=== PATIENT | male | born 1960 | race Caucasian/White ===

== ENCOUNTER → 2017-03-29 | Outpatient (CLI) | payer BC ==
[~2017-03-29] MED LIST: FENO145T26 PO; FLUO40CA8 PO; GADAVIST IV PRN; HYDR25TA4 PO; OMEP20CA59 PO; SIMV40TA2 PO
--- NOTE | 2017-03-29 09:52 | DIAGNOSTIC IMAGING REPORT ---
Brain MRI WITH AND WITHOUT CONTRAST HISTORY: Visual abnormality. I63.9 Stroke [id number] TECHNIQUE: Multiplanar multisequence MRI of the brain was performed both before and after the intravenous administration of contrast. COMPARISON STUDY: None. FINDINGS: There are no areas of restricted diffusion to suggest acute infarction. The midline structures are intact. The paranasal sinuses are clear. The mastoid air cells are clear. The ventricles and sulci are within normal limits for age. There is no mass, hematoma, midline shift. The major vascular flow-voids at the skull base are well maintained. Postcontrast sequences show no areas of abnormal enhancement. IMPRESSION: No acute intracranial abnormality. Electronically signed by: Anoop Sanchez M.D. 03/29/2017 9:51 AM Dictated Date/Time: 03/29/2017 9:43 AM
--- NOTE | 2017-03-29 10:19 | DIAGNOSTIC IMAGING REPORT ---
BILATERAL CAROTID DOPPLER STUDY HISTORY: Visual disturbances. COMPARISON: None. TECHNIQUE: Real-time, grayscale, and color Doppler sonography of the carotid arteries was performed. Imaging reviewed in the transverse and longitudinal planes. All measurements were calculated based on NASCET criteria. FINDINGS: Antegrade flow is seen in the bilateral vertebral arteries. The brachial pressures are hemodynamically similar but elevated measuring up to 177/105 on the right. The peak systolic velocity within the right ICA is 71 cm/s. The right systolic ratio is 0.6. The peak systolic velocity within the left ICA is 71 cm/s. The left systolic ratio is 0.8. IMPRESSION: 1. No hemodynamically significant stenosis seen within the carotid arteries. 2. Elevated blood pressures measuring up to 177/105. 3. These findings were called/faxed to the referring physician's office following dictation. Electronically signed by: Anoop Sanchez M.D. 03/29/2017 10:18 AM Dictated Date/Time: 03/29/2017 10:16 AM
== END | disposition home or self-care (01) ==
LOC: C.MRI 08:43
PROVIDERS: ATTEND Psychiatry & Neurology Neurology
DX: I63.9 Cerebral infarction, unspecified (principal)

== ENCOUNTER → 2017-08-01 | Outpatient (CLI) | payer OTHER ==
[~2017-08-01] MED LIST changes: -GADAVIST IV PRN
--- NOTE | 2017-08-01 10:43 | DIAGNOSTIC IMAGING REPORT ---
RIGHT THIRD FINGER 3 VIEWS CLINICAL HISTORY: Right third finger pain status post trauma COMPARISON: None. DISCUSSION: There is a nondisplaced fracture involving the tuft of the distal phalanx the third finger. No additional fractures are visualized. There is no dislocation. There is associated soft tissue swelling. IMPRESSION: Nondisplaced fracture involving the tuft of the distal phalanx. Electronically signed by: Regulo Mishra M.D. 08/01/2017 10:41 AM Dictated Date/Time: 08/01/2017 10:38 AM
== END | disposition home or self-care (01) ==
LOC: C.RADPV 10:21
PROVIDERS: ATTEND Family Medicine
DX: S62.662A Nondisplaced fracture of distal phalanx of right middle finger, initial encounter for closed fracture (principal); X58.XXXA Exposure to other specified factors, initial encounter

== ENCOUNTER → 2017-08-08 | Outpatient (CLI) | payer OTHER ==
[2017-08-08 13:25] LABS: BLOOD UREA NITROGEN 13 mg/dl (7-18); CREATININE 1.26 mg/dl (0.60-1.40); GLUCOSE 101 mg/dl (70-99)
[2017-08-08 13:26] LABS: CALCIUM 9.4 mg/dl (8.5-10.1); CARBON DIOXIDE 27 mmol/L (21-32); CHOLESTEROL 220 mg/dl (0-200); POTASSIUM 3.3 mmol/L (3.5-5.1); SODIUM 138 mmol/L (136-145)
[2017-08-08 13:30] LABS: LDL CHOLESTEROL CALCULATED 160 mg/dl
== END | disposition home or self-care (01) ==
LOC: C.LABPVFM 08:57
PROVIDERS: ATTEND Nurse Practitioner
DX: E78.5 Hyperlipidemia, unspecified (principal); I10 Essential (primary) hypertension

== ENCOUNTER 2022-08-02 10:32 | Inpatient (IN) ==
--- NOTE | 2022-07-13 12:07 | PAT Medication Instructions ---
Medication Instructions Date of Service July 13, 2022 Home Medications Medication Instructions Recorded zolpidem 5 mg tablet (Ambien) 5 mg PO ONCE PRN insomnia #30 tabs 03/04/22 losartan 25 mg tablet 25 mg PO QAM #90 tabs 03/22/22 atorvastatin 40 mg tablet 40 mg PO QAM #90 tabs 04/05/22 fenofibrate nanocrystallized 145 145 mg PO QAM #90 tabs 04/05/22 mg tablet verapamil 100 mg capsule 24hr 100 mg PO QAM #90 caps 04/12/[address],ext.release escitalopram oxalate 20 mg tablet 20 mg PO QAM #90 tabs 05/10/22 (Lexapro) multivitamin 1 tab PO QAM zolpidem 5 mg tablet (Ambien) 5 mg PO ONCE PRN insomnia losartan 25 mg tablet 25 mg PO QAM atorvastatin 40 mg tablet 40 mg PO QAM fenofibrate nanocrystallized 145 mg tablet 145 mg PO QAM verapamil 100 mg capsule 24hr pellet CT,ext.release 100 mg PO QAM escitalopram oxalate 20 mg tablet (Lexapro) 20 mg PO QAM ferrous sulfate 325 mg (65 mg iron) tablet (iron) 325 mg PO QAM gabapentin 300 mg tablet 300 - 900 mg PO UD omeprazole 40 mg capsule,delayed release 40 mg PO BID PRN Indigestion STOP taking 48 hours before surgery fenofibrate nanocrystallized 145 mg tablet 145 mg PO QAM DO NOT take the morning of surgery multivitamin 1 tab PO QAM losartan 25 mg tablet 25 mg PO QAM ferrous sulfate 325 mg (65 mg iron) tablet (iron) 325 mg PO QAM Take morning of surgery With a small sip of water, OTHERWISE NOTHING TO EAT OR DRINK AFTER MIDNIGHT: atorvastatin 40 mg tablet 40 mg PO QAM verapamil 100 mg capsule 24hr pellet CT,ext.release 100 mg PO QAM escitalopram oxalate 20 mg tablet (Lexapro) 20 mg PO QAM omeprazole 40 mg capsule,delayed release 40 mg PO BID PRN Indigestion (if needed) gabapentin 300 mg tablet 300 - 900 mg PO UD Take evening before surgery zolpidem 5 mg tablet (Ambien) 5 mg PO ONCE PRN insomnia (if needed) omeprazole 40 mg capsule,delayed release 40 mg PO BID PRN Indigestion (if needed) gabapentin 300 mg tablet 300 - 900 mg PO UD Other Notes If you have any questions please call us at [phone] or [phone] or [phone] or [phone]
--- NOTE | 2022-07-19 10:33 | Anesthesiology Consultation ---
Date of Service July 19, 2022 Assessment & Plan (1) Encounter for pre-operative examination: Chart Review Chart Review: Acceptable Risk for Surgery and Patient seen in Pre Admission Testing Teaching & Discussion Pre-Anesthesia Teaching/Discussion Notes: Instructed NPO after midnight before surgery, except medications with 15 cc of water. Medication instructions provided according to the PAT guidelines. History Surgery Operation Date: 08/02/22 07:45 Proposed Procedures p L2-L4 Decompression, L2-L5 Fusion, L4-L5 Hardware Removal, Spinal Cord Monitoring - Kane James DO Height/Weight Height: 5 ft 7 in Weight: 74.843 kg Allergies Allergy/AdvReac Type Severity Reaction Status Date / Time lisinopril AdvReac Mild cough Verified 07/13/22 10:19 Medications Home Medications Medication Instructions Recorded Confirmed Last Taken multivitamin 1 tab PO QAM 09/07/21 07/13/22 09/09/21 zolpidem 5 mg tablet (Ambien) 5 mg PO ONCE PRN insomnia #30 tabs 03/04/22 07/13/22 Unknown losartan 25 mg tablet 25 mg PO QAM #90 tabs 03/22/22 07/13/22 Unknown atorvastatin 40 mg tablet 40 mg PO QAM #90 tabs 04/05/22 07/13/22 Unknown fenofibrate nanocrystallized 145 145 mg PO QAM #90 tabs 04/05/22 07/13/22 Unknown mg tablet escitalopram oxalate 20 mg tablet 20 mg PO QAM #90 tabs 05/10/22 07/13/22 Unknown (Lexapro) ferrous sulfate 325 mg (65 mg 325 mg PO QAM 07/13/22 07/13/22 Unknown iron) tablet (iron) gabapentin 300 mg tablet 300 - 900 mg PO UD 07/13/22 07/13/22 Unknown omeprazole 40 mg capsule,delayed 40 mg PO BID PRN Indigestion 07/13/22 07/13/22 Unknown release verapamil 100 mg capsule 24hr 100 mg PO QAM #90 caps 07/14/[address],ext[address]release Past Medical History Medical History (Updated 07/19/22 @ 10:46 by Mikaela Xavier PA-C) Anemia Depression GERD (gastroesophageal reflux disease) controlled, stable per pt History of colon polyps History of esophageal dilatation last done > 1 yr ago HLD (hyperlipidemia) HTN (hypertension) controlled, stable per pt Migraine ocular, pt states had negative MRI brain and carotid studies > 5 yrs ago Prediabetes Recovering alcoholic Slow to wake up after anesthesia denies needing re-intubation Tubular adenoma of colon Patient denies h/o stroke, seizures, heart attack, heart failure, blood clots or blood transfusions. Exercise / Class Metabolic Activity II 4-5 Yardwork/Stairs/Walk up hill (denies chest discomfort or shortness of breath with 1 FOS) Past Family History Family History Mother Colorectal cancer Other No family history of adverse response to anesthesia Denies family history of Ovarian cancer Prostate cancer Myocardial infarction Breast cancer Past Surgical History Surgical History History of colonoscopy last 09/2020 @ [facility] History of esophagogastroduodenoscopy (EGD) History of hand surgery Rt History of lumbar fusion History of shoulder surgery Lt History of tonsillectomy History of wisdom tooth extraction S/P correction of deviated nasal septum Past Anesthesia History No Family Hx of Anesthesia Complications and Other (slow to wake up, denies needing re-intubation) History of PONV No Hx of PONV and No Hx of Motion Sickness Social History Smoking Status: Former smoker tobacco type: cigarettes Do You Dip or Chew Tobacco: Yes (1 can/10 days; advised) Smoking End Date: 8-10 years ago Hx Alcohol Use: No Hx Substance Use: No substance use type: does not use Review of Systems Patient denies chest pain, shortness of breath, dyspnea on exertion, snoring, witnessed apneas, fever, chills, cough, wheezing, or palpitations. Physical Exam Vital Signs Vitals BP 126/86 P 70 TEMP 98.6 SP02 96% on RA RESP 17 Physical Full cervical extension range of motion without pain TMD 3.5 finger breadths Mallampati Score 3 Dentition: multiple caps/crowns; denies chipped or loose teeth, implants or bridges Lungs: normal respiratory effort. Clear throughout to auscultation, no adventitious breath sounds Cardiac: regular rate and rhythm, no murmurs noted Carotid arteries: negative bruit bilat Lab Results Anesthesia Preop Results Results Anesthesia Widget: WBC 5.74 K/ul (4.8-10.8) 07/19/22 Hgb 14.4 g/dl (14.0-18.0) 07/19/22 Hct 43.6 % (42.0-52.0) 07/19/22 Plt 331 K/uL (130-400) 07/19/22 Na 141 mmol/L (136-145) 07/19/22 K 3.8 mmol/L (3.5-5.1) 07/19/22 Cl 106 mmol/L (98-107) 07/19/22 CO2 31 mmol/L (21-32) 07/19/22 BUN 13 mg/dl (6-23) 07/19/22 Creat 1.03 mg/dl (0.6-1.4) 07/19/22 Glucose Level 79 mg/dl (70-99(Fasting)) 07/19/22 PT 11.4 Seconds (9.0-12.0) 07/19/22 PTT 26.6 Seconds (21.0-31.0) 07/19/22 INR 1.1 (0.9-1.1) 07/19/22 Urine Color Dark Yellow 07/19/22 Urine Appearance Cloudy (Clear) A 07/19/22 Urine pH 7.0 (4.5-7.5) 07/19/22 Urine Specific [place] 1.018 (1.000-1.030) 07/19/22 Urine Protein Negative (Negative) 07/19/22 Urine Glucose (UA) Negative (Negative) 07/19/22 Urine Ketones Negative (Negative) 07/19/22 Urine Blood Negative (Negative) 07/19/22 Urine Nitrite Negative (Negative) 07/19/22 Urine Bilirubin Negative (Negative) 07/19/22 Urine Urobilinogen Negative (Negative) 07/19/22 Urine Leukocyte Esterase Negative (Negative) 07/19/22 Urine WBC (Auto) 1-5 /hpf (0-5) 07/19/22 Urine RBC (Auto) 5-10 /hpf (0-4) H 07/19/22 Urine Hyaline Casts (Auto) 1-5 /lpf (0-5) 07/19/22 Urine Epithelial Cells (Auto) 5-10 /lpf (0-5) H 07/19/22 Urine Bacteria (Auto) Negative (Negative) 07/19/22 Blood Type O Negative 07/19/22 Antibody Screen NEGATIVE 07/19/22 Testing Electrocardiogram Date: 07/19/22 NSR, rate 68 bpm Chest X-Ray Date: 07/19/22 Cardiomediastinal and hilar silhouettes are within normal limits. No pneumothorax, pleural effusion, airspace consolidation or pulmonary edema. Bones appear grossly intact. IMPRESSION: No acute process. COVID-19 Risk Screen Screening Information COVID-19 Screen Date: 07/19/22 Exposure 21 Days Family/Household +COVID Last 21 Days: No Exposure 10 Days Any COVID Exposure Last 10 Days: No Symptoms Last 10 Days Experienced COVID Sx Last 10 Days: No + COVID 0-90 Days COVID + in Last 0-90 Days: No
[~2022-08-02 10:32] MED LIST changes: +ACETAMINOPHEN 500 MG TAB PO SCH; +CeleBREX 200 MG CAP PO SCH; -FENO145T26 PO; -FLUO40CA8 PO; +GABAPENTIN 600 MG DOSE PO SCH; -HYDR25TA4 PO; +LR 15ML/HR IV SCH; -OMEP20CA59 PO; -SIMV40TA2 PO; +ceFAZolin 2000MG 2,000 MG/15 ML SYR IV SCH
[2022-08-02] MEDS ORDERED: MIDAZOLAM HCL 1 MG/ML 2ML VIAL ONE (10:38)
[2022-08-02] MEDS ORDERED: HYDROmorphone INJ 2 MG/ML SYR/VIAL ONE (10:38)
[2022-08-02] MEDS ORDERED: ONDANSETRON INJ 2 MG/ML 2 ML VIAL ONE (10:39)
[2022-08-02] MEDS ORDERED: PROPOFOL IV EMULSION 10 MG/ML 20 ML VIAL IV ONE ×2 (10:39→12:14)
[2022-08-02] MEDS ORDERED: DEXAMETHASONE SOD INJ 4 MG/ML VIAL ONE (10:39)
[2022-08-02] MEDS ORDERED: ROCURONIUM BROMIDE 10 MG/ML 5 ML VIAL IV ONE (10:39)
[2022-08-02] MEDS ORDERED: LIDOCAINE 2% MPF LOCAL 5 ML VIAL ONE (10:39)
[2022-08-02] MEDS ORDERED: PROMETHAZINE HCL 6.25 MG in SODIUM CHLORIDE 0.9% 50 ML IV PRN (10:53)
[2022-08-02] MEDS ORDERED: ONDANSETRON INJ 2 MG/ML 2 ML VIAL IV PRN ×2 (10:53→15:14)
[2022-08-02] MEDS ORDERED: ATROPINE SULFATE 0.1 MG/ML 10ML SYR IV PRN (10:53)
[2022-08-02] MEDS ORDERED: ePHEDrine sulfate 50 MG/ML AMP IV PRN (10:53)
[2022-08-02] MEDS ORDERED: fentaNYL citrate PF 100 MCG/2 ML VIAL IV PRN (10:53)
--- NOTE | 2022-08-02 11:07 | History & Physical Bridge Note ---
Date of Service August 02, 2022 History & Physical Bridge Note I have examined the patient, reviewed the History & Physical and in the interval since the performance of the History & Physical I have noted the following changes of clinical significance: no changes noted
--- NOTE | 2022-08-02 11:09 | History & Physical Report ---
Date of Service August 02, 2022 Assessment & Plan (1) Neurogenic claudication due to lumbar spinal stenosis: Plan: L2-L4 decompression, L2-L5 fusion, L4-L5 hardware removal History of Present Illness Chief Complaint: Back and leg pain Primary Care Provider: GEM Cole This is a 62-year-old male presents with above-mentioned diagnosis after failed course of nonoperative care is here for surgical invention. Allergies Allergy/AdvReac Type Severity Reaction Status Date / Time lisinopril AdvReac Mild cough Verified 08/02/22 10:53 Home Medications Medication Instructions Recorded Confirmed Type multivitamin 1 tab PO QAM 09/07/21 08/02/22 History zolpidem 5 mg tablet (Ambien) 5 mg PO ONCE PRN insomnia #30 tabs 03/04/22 08/02/22 Rx losartan 25 mg tablet 25 mg PO QAM #90 tabs 03/22/22 08/02/22 Rx atorvastatin 40 mg tablet 40 mg PO QAM #90 tabs 04/05/22 08/02/22 Rx fenofibrate nanocrystallized 145 145 mg PO QAM #90 tabs 04/05/22 08/02/22 Rx mg tablet escitalopram oxalate 20 mg tablet 20 mg PO QAM #90 tabs 05/10/22 08/02/22 Rx (Lexapro) ferrous sulfate 325 mg (65 mg 325 mg PO QAM 07/13/22 08/02/22 History iron) tablet (iron) gabapentin 300 mg tablet 300 - 900 mg PO UD 07/13/22 08/02/22 History omeprazole 40 mg capsule,delayed 40 mg PO BID PRN Indigestion 07/13/22 08/02/22 History release verapamil 100 mg capsule 24hr 100 mg PO QAM #30 caps 07/26/22 07/26/[address],ext.release Past Med/Surg History Medical History Anemia Depression GERD (gastroesophageal reflux disease) History of colon polyps History of esophageal dilatation HLD (hyperlipidemia) HTN (hypertension) Migraine Prediabetes Recovering alcoholic Slow to wake up after anesthesia Tubular adenoma of colon Surgical History History of colonoscopy History of esophagogastroduodenoscopy (EGD) History of hand surgery History of lumbar fusion History of shoulder surgery History of tonsillectomy History of wisdom tooth extraction S/P correction of deviated nasal septum Family History Mother Colorectal cancer Other No family history of adverse response to anesthesia Denies family history of Ovarian cancer Prostate cancer Myocardial infarction Breast cancer Social History Smoking Status: Former smoker Tobacco Type: Smokeless Tobacco (Dip or Chew) Smoking End Date: 8-10 years ago; Second Hand Exposure: Yes (hx); Do You Dip or Chew Tobacco: Yes (1 can/10 days; advised); Tobacco Cessation Education Requested by Patient: No Hx Alcohol Use: No Hx Substance Use: No Preferred Language: Macedonian Communication Ability: Effective Manager Developmental Required: No Beliefs That Will Affect Care: None marital status: Current Living Situation: Spouse current occupational status: employed How many Children do You have: 1 Other Information That Helps Us Care for You: No Feels Safe at Home: Yes Safety Concerns: Feels Safe At This Time Childhood Exposure to Second-Hand Smoke: No caffeine: Yes Dental Care, Regularly: Yes Physical Activity Frequency: Daily Seatbelt Use: always Sunscreen Use: Yes Assistive Devices: Glasses Physical Exam Physical Exam: Patient is alert and oriented Heart regular rhythm Lungs clear Results & Data Results & Data Vital Signs (Past 12 Hours) Vital Signs Temp Pulse Resp BP Pulse Ox O2 Del Method 08/02/22 10:56 37 C 66 16 138/87 97 Room Air
[2022-08-02] MEDS ORDERED: ceFAZolin 330 MG/ML 1 GM VIAL ONE (11:14)
[2022-08-02] MEDS ORDERED: BUPIVACAINE/EPINEPHRINE 0.25% 1:200,000 30 ML VIAL ONE (11:14)
[2022-08-02] MEDS ORDERED: FLOSEAL HEMOSTATIC MATRIX 10ML TOP ONE (12:32)
[2022-08-02] MEDS ORDERED: ePHEDrine sulfate 50 MG/ML SYR ONE (12:36)
[2022-08-02] MEDS ORDERED: SUGAMMADEX SODIUM 200 MG/2 ML VIAL IV ONE (12:43)
--- NOTE | 2022-08-02 13:44 | Operative Report ---
Post Operative Report Pre & Post Diagnosis Operation Date: 08/02/22 12:05 Pre-Op Diagnosis: Spinal Stenosis, Lumbar Region without Neurogenic Post-Op Diagnosis: Spinal Stenosis, Lumbar Region without Neurogenic I identified the patient and participated in the time-out.: Yes Procedure Operation Date: 08/02/22 12:05 Actual Procedures #1 removal of posterior instrumentation L4-L5. #2 exploration of fusion L4-5. #3 lumbar decompression with bilateral medial facetectomies and foraminotomies L2-L3 L3-L4. #4 posterior spinal fusion L2-L3 L3-L4. #5 placement posterior instrumentation L2-L5. #6 interbody fusion L2-L3 L3-L4. #7 placement of Spira 12 x 26 mm cage at L2-L3 and L3-L4. #8 placement locally harvested morselized autograft and posterior gutters. #9 placement I factor bone of the talus in the interbody space and posterior gutters. Surgeon Kane James, Artifacts Conservator Gabriela Cantrell Estimated Blood Loss 350 Findings Consistent with Post-Op Diagnosis Specimens None Indications This is a 61-year-old male who presents above-mentioned diagnosis after failed course of nonoperative care is here for surgical invention. Description of Procedure Patient was met with identified informed consent obtained. Patient was then taken to the operative suite underwent a patient placed in a prone position on the Grupo table top Andres frame. All bony prominences well-padded eyes inspected to ensure no external pressure placed upon the. This point the lumbar spine was prepped and draped in normal sterile fashion. Sharp dissection with assistance of Bovie cautery performed down to and exposing the lamina and transverse processes of L2-L3 and instrumentation at L4-L5 bilaterally. Then proceeded move the hardware bilaterally explore the fusion mass noting it to be mature intact. Then performed complete laminectomy of L3 and L2 including bilateral medial facetectomies and foraminotomies addressing severe spinal stenosis. Pedicle screws then placed in L2 L3-L4-L5 bilaterally with assistance of fluoroscopy and the properly sized silva placed. By way of a trans foraminal approach on the right complete discectomy L3-L4 was performed endplates curetted to subcortical bleeding bone and a 12 x 26 mm Spira cage with I factor tapped in position. I then proceeded L2-L3 and again by way of transforaminal approach on the right complete discectomy performed endplates curetted to subcortically and bone and again a 12 x 26 mm Spira cage with I factor tapped in position. The rods were then locked in final position bilaterally. The transverse processes of L2-L3-L4 burred to subcortical bleeding bone. I factor combined with the test and locally harvested morselized autograft was placed in the posterior gutters. 15 round ESTEPHANIE drain inserted. The incision was then closed with 1 Vicryl the fascia 2-0 Vicryl subcutaneously and 4 Monocryl for final skin closure. Steri-Strip sterile dressings placed. Please note I did place DuraGen over the thinned area of the dura that was very tight throughout the dissection. No durotomy was noted as prophylactic. Also Gabriela Cantrell was present out the entire procedure and all the patient positioning complex portions of the surgery and final skin closure. Lastly spinal cord monitoring was utilized throughout the procedure no changes noted. I attest to the content of the Intraoperative Record and any orders documented therein. Any exceptions are noted below.
--- NOTE | 2022-08-02 14:39 | Fluoroscopy Report ---
INTRAOPERATIVE RADIOGRAPHS CLINICAL HISTORY: Lumbar spinal fusion surgery. Fluoro time: 17 seconds Ka,r: 18.25 mGy FINDINGS: 4 spot fluoroscopic views of the lumbar spine are presented. There has been discectomy at L 2-L3, L3-L4, and L4-L5 with laminectomy and posterior fusion from L2-L5. Interpedicular screws are pr esent at all levels. The orthopedic hardware appears intact. IMPRESSION: Intraoperative images from lumbar spinal fusion surgery as above. Electronically signed by: Marito Christian M.D. 08/02/2022 2:37 PM
[2022-08-02] MEDS ORDERED: PROMETHAZINE HCL 12.5 MG in SODIUM CHLORIDE 0.9% 50 ML IV PRN (15:14)
[2022-08-02] MEDS ORDERED: LORazepam 2 MG/1 ML VIAL IV PRN (15:14)
[2022-08-02] MEDS ORDERED: bisacodyL 10 MG SUPP PR PRN (15:14)
[2022-08-02] MEDS ORDERED: ONDANSETRON 4 MG OD TAB PO PRN (15:14)
[2022-08-02] MEDS ORDERED: FAMOTIDINE 20 MG TAB PO PRN (15:14)
[2022-08-02] MEDS ORDERED: HYDROmorphone INJ 1 MG/ML SYRINGE IV PRN (15:14)
[2022-08-02] MEDS ORDERED: MAGNESIUM HYDROXIDE SUSP 30 ML UDC PO PRN (15:14)
[2022-08-02] MEDS ORDERED: PANTOprazole 40 MG TAB PO PRN (15:14)
[2022-08-02] MEDS ORDERED: NON-FORMULARY MEDICATION (Gabapentin 300 mg Tablet) PO SCH (15:14)
[2022-08-02] MEDS ORDERED: ACETAMINOPHEN 500 MG TAB PO PRN (15:14)
[2022-08-02] MEDS ORDERED: diphenhydrAMINE Capsule 25 MG CAP PO PRN (15:14)
[2022-08-02] MEDS ORDERED: hydrOXYzine HCl 25 MG TAB PO PRN (15:14)
[2022-08-02] MEDS ORDERED: ACETAMINOPHEN 1,000 MG/100 ML VIAL IV PRN (15:14)
[2022-08-02] MEDS ORDERED: traMADol HCL 50 MG TABLET PO PRN (15:14)
[2022-08-02] MEDS ORDERED: METOCLOPRAMIDE HCL INJ 5 MG/ML 2 ML VIAL IV PRN (15:14)
[2022-08-02] MEDS ORDERED: SOD PHOSPHATE/SOD BIPHOSPHATE ENEMA 132 ML BTL PR PRN (15:14)
[2022-08-02] MEDS ORDERED: NALOXONE HCL 0.4 MG/1 ML VIAL/CARP IV PRN (15:14)
[2022-08-02] MEDS ORDERED: HYDROmorphone INJ 0.5 MG/0.5 ML SYR IV PRN (15:14)
[2022-08-02] MEDS ORDERED: DO NOT ADMINISTER FLU VACCINE PRN (15:14)
[2022-08-02] MEDS ORDERED: LORazepam 0.5 MG TAB PO PRN (15:14)
[2022-08-02] MEDS ORDERED: ALUMINUM/MAGNESIUM SUSP 30 ML UDC PO PRN (15:14)
[2022-08-02] MEDS ORDERED: DO NOT ADMINISTER PNEUMOCOCCAL VACCINE PRN (15:14)
[2022-08-02] MEDS ORDERED: oxyCODONE HCL IR 5 MG TAB (IMMEDIATE RELEASE) PO PRN (15:14)
--- NOTE | 2022-08-02 16:33 | Anesthesiology Progress Note ---
Date of Service August 02, 2022 Anesthesia Post Procedure Vital Signs Vital Signs: Temp Pulse Pulse Resp BP Pulse Ox O2 Del Method 08/02/22 16:07 36.4 C L 80 18 100/64 95 Room Air 08/02/22 15:40 36.8 C 76 16 104/60 96 Room Air 08/02/22 15:39 Nasal Cannula 08/02/22 15:12 36.3 C L 85 16 100/59 L 98 Nasal Cannula 08/02/22 14:55 36.6 C 87 12 107/62 93 Nasal Cannula 08/02/22 14:45 36.6 C 82 12 100/60 92 Nasal Cannula 08/02/22 14:35 36.6 C 90 12 102/63 93 Room Air 08/02/22 14:25 88 20 101/65 96 Oxymask 08/02/22 14:15 85 15 107/62 96 Oxymask 08/02/22 14:05 89 16 98/60 L 97 Oxymask 08/02/22 13:56 36.5 C 84 18 118/66 96 Oxymask 08/02/22 10:56 37 C 66 16 138/87 97 Room Air O2 Flow Rate 08/02/22 16:07 08/02/22 15:40 08/02/22 15:39 3 08/02/22 15:12 3 08/02/22 14:55 3 08/02/22 14:45 3 08/02/22 14:35 08/02/22 14:25 1 08/02/22 14:15 3 08/02/22 14:05 5 08/02/22 13:56 7 08/02/22 10:56 Pain Intensity Bilateral Lower Back: Pain Intensity: 2 Transfer of Care Handoff Completed per policy Notes Mental Status: alert / awake / arousable Patient Amnestic to Procedure: Yes Nausea / Vomiting: adequately controlled Pain: adequately controlled Airway Patency, RR, SpO2: stable & adequate BP & HR: stable & adequate Hydration State: stable & adequate Anesthetic Complications: no major complications apparent
[2022-08-02] MEDS: LACTATED RINGER'S 1,000 ML IV SCH (16:50)
[2022-08-02] MEDS: GABAPENTIN 300 MG CAP PO SCH (21:14)
[2022-08-02] MEDS: DOCUSATE SODIUM/SENNA 50/8.6MG TAB PO SCH (21:14)
[2022-08-02] MEDS: ceFAZolin 2000MG 2,000 MG/15 ML SYR IV SCH (21:14)
[2022-08-03] MEDS: LACTATED RINGER'S 1,000 ML IV SCH (02:49)
[2022-08-03] MEDS: ceFAZolin 2000MG 2,000 MG/15 ML SYR IV SCH (04:20)
[2022-08-03] MEDS: POLYETHYLENE (MIRALAX) 17 GM PACK PO SCH ×3 (06:02→17:44)
[2022-08-03 06:24] LABS: Basophils # (auto) 0.01 K/uL (0-0.2); Basophils % (auto) 0.1 %; Hematocrit (blood only) 32.5 % (42.0-52.0); Hemoglobin 10.8 g/dl (14.0-18.0); Immature Granulocytes # (auto) 0.08 K/uL (0.01-0.20); Immature Granulocytes % (auto) 0.6 %; Lymphocytes # (auto) 0.68 K/uL (1.2-3.4); Lymphocytes % (auto) 4.7 %; Mean Corpuscular Hemoglobin 28.8 pg (25.0-34.0); Mean Corpuscular Hgb Conc 33.2 g/dL (32.0-36.0); Mean Corpuscular Volume 86.7 fL (80.0-100.0); Mean Platelet Volume 10.4 fL (9.4-12.4); Monocytes # (auto) 1.02 K/uL (0.11-0.59); Monocytes % (auto) 7.1 %; Neutrophils # (auto) 12.58 K/uL (1.40-6.50); Neutrophils % (auto) 87.5 %; Platelet Count 320 K/uL (130-400); RDW Standard Deviation 41.1 fL (36.4-46.3); Red Blood Count 3.75 M/uL (4.70-6.10); White Blood Count 14.37 K/ul (4.8-10.8)
[2022-08-03 06:48] LABS: BUN Creatinine Ratio 10.8 (10-20); Calcium 8.7 mg/dl (8.6-10.3); Est GFR (African American) 100.9 ml/min; Est GFR (Non-African American) 87.1 ml/min; Potassium 3.8 mmol/L (3.5-5.1)
[2022-08-03] MEDS: dexAMETHasone 6 MG in SYRINGE 0 ML IV SCH (08:22)
[2022-08-03] MEDS: GABAPENTIN 300 MG CAP PO SCH ×2 (08:22→22:34)
[2022-08-03] MEDS: ATORVASTATIN 40 MG TAB PO SCH (08:23)
[2022-08-03] MEDS: ESCITALOPRAM OXALATE 20 MG TAB PO SCH (08:23)
[2022-08-03] MEDS: MULTIVITAMIN TAB PO SCH (08:23)
[2022-08-03] MEDS: FERROUS SULFATE 325 MG TAB PO SCH (08:23)
[2022-08-03] MEDS: LOSARTAN POTASSIUM 25 MG TAB PO SCH (08:23)
--- NOTE | 2022-08-03 10:13 | Hospitalist Consultation ---
Date of Consultation August 03, 2022 Assessment & Plan (1) Neurogenic claudication due to lumbar spinal stenosis: Acute neurological claudication necessitating surgery 08/02/2022 L4-L5 to decompression with L2 L5 fusion, previous hardware removal Dr. James Postoperative pain control with Tylenol, perioperative dexamethasone, gabapentin, parenteral hydromorphone and oral oxycodone Acute blood loss anemia postoperatively not in need of transfusion, (2) Hypertension: Chronic stable hypertension continue verapamil and losartan, pressures are slightly soft postoperatively continue to follow (3) Depression: Chronic stable depression continue Lexapro (4) Prediabetes: Chronic stable patient with history of prediabetes previous A1c's have been 6.2 and 5.4. With steroid use we will continue to follow serum blood glucoses and if need be institute therapy History of Present Illness Attending Physician: Kane James, DO History of Present Illness 62-year-old male underwent an L2-L4 decompression with an L2-L5 fusion previous hardware removal by Dr. James on 08/02/2022 Medical consultation for perioperative management with a history of hypertension and dyslipidemia as well as depression. Documentation in the chart of prediabetes, previous hemoglobin A1c's have been normal Allergies Allergy/AdvReac Type Severity Reaction Status Date / Time lisinopril AdvReac Mild cough Verified 08/02/22 10:53 Home Medications Medication Instructions Recorded Confirmed Type multivitamin 1 tab PO QAM 09/07/21 08/02/22 History zolpidem 5 mg tablet (Ambien) 5 mg PO ONCE PRN insomnia #30 tabs 03/04/22 08/02/22 Rx losartan 25 mg tablet 25 mg PO QAM #90 tabs 03/22/22 08/02/22 Rx atorvastatin 40 mg tablet 40 mg PO QAM #90 tabs 04/05/22 08/02/22 Rx fenofibrate nanocrystallized 145 145 mg PO QAM #90 tabs 04/05/22 08/02/22 Rx mg tablet escitalopram oxalate 20 mg tablet 20 mg PO QAM #90 tabs 05/10/22 08/02/22 Rx (Lexapro) ferrous sulfate 325 mg (65 mg 325 mg PO QAM 07/13/22 08/02/22 History iron) tablet (iron) gabapentin 300 mg tablet 300 - 900 mg PO UD 07/13/22 08/02/22 History omeprazole 40 mg capsule,delayed 40 mg PO BID PRN Indigestion 07/13/22 08/02/22 History release verapamil 100 mg capsule 24hr 100 mg PO QAM #30 caps 07/26/22 07/26/[address],ext.release oxycodone-acetaminophen 5 mg-325 1 tab PO Q8H #30 tabs 08/03/22 Rx mg tablet (Percocet) tramadol 50 mg tablet 50 mg PO Q6H PRN pain, moderate 08/03/22 Rx #30 tabs Patient History Medical History Anemia Depression GERD (gastroesophageal reflux disease) History of colon polyps History of esophageal dilatation HLD (hyperlipidemia) HTN (hypertension) Migraine Prediabetes Recovering alcoholic Slow to wake up after anesthesia Tubular adenoma of colon Surgical History History of colonoscopy History of esophagogastroduodenoscopy (EGD) History of hand surgery History of lumbar fusion History of shoulder surgery History of tonsillectomy History of wisdom tooth extraction S/P correction of deviated nasal septum Family History Mother Colorectal cancer Other No family history of adverse response to anesthesia Denies family history of Ovarian cancer Prostate cancer Myocardial infarction Breast cancer Social History Smoking Status: Former smoker Tobacco Type: Smokeless Tobacco (Dip or Chew) Smoking End Date: 8-10 years ago; Second Hand Exposure: Yes (hx); Do You Dip or Chew Tobacco: Yes (1 can/10 days; advised); Tobacco Cessation Education Requested by Patient: No Hx Alcohol Use: No Hx Substance Use: No Preferred Language: Latvian Communication Ability: Effective Guest Relations Coordinator Required: No Beliefs That Will Affect Care: None marital status: Current Living Situation: Spouse current occupational status: employed How many Children do You have: 1 Other Information That Helps Us Care for You: No Feels Safe at Home: Yes Safety Concerns: Feels Safe At This Time Childhood Exposure to Second-Hand Smoke: No caffeine: Yes Dental Care, Regularly: Yes Physical Activity Frequency: Daily Seatbelt Use: always Sunscreen Use: Yes Assistive Devices: Cane Physical Exam Physical Exam: Pt is awake and alert pain in back with movement le neuropathy is not worse than baseline Results & Data Results & Data Vital Signs (Past 12 Hours) Vital Signs Temp Pulse Pulse Resp BP BP Pulse Ox 08/03/22 07:38 97.7 F 82 16 112/67 96 08/03/22 04:19 98.2 F 84 16 104/66 95 08/02/22 23:36 98.1 F 80 14 127/71 94 O2 Del Method 08/03/22 07:38 Room Air 08/03/22 04:19 Room Air 08/02/22 23:36 Room Air PG Care Time/CCT Total # of Minutes Spent Total Time Spent with Patient: Total time spent is greater than 50% in coordination of care (as documented) at patient's floor/unit and/or counseling patient: Coding Level of Care Code 90997 IN/OBS CONSULT LVL 2,35M Diagnoses Neurogenic claudication due to lumbar spinal stenosis M48.062 Hypertension I10 Depression F32.9 Prediabetes R73.03
--- NOTE | 2022-08-03 11:35 | Orthopedic Progress Note ---
Date of Service August 03, 2022 Assessment & Plan (1) Neurogenic claudication due to lumbar spinal stenosis: Plan: This time we will discontinue drain this afternoon. We will begin bed to chair today. I will reassess him in the a.m. We may consider therapy tomorrow. Admission and Anticipated Discharge Date Admission Date: August 02, 2022 Subjective Back pain is controlled denies any leg pain. Denies any nausea or vomiting. Eating well. Physical Exam Physical Exam: On exam patient is in bed. Is good strength testing. Appears comfortable. Results & Data Vital Signs (Past 12 Hours) Vital Signs Temp Pulse Pulse Resp BP BP Pulse Ox 08/03/22 07:38 36.5 C 82 16 112/67 96 08/03/22 04:19 36.8 C 84 16 104/66 95 08/02/22 23:36 36.7 C 80 14 127/71 94 O2 Del Method 08/03/22 07:38 Room Air 08/03/22 04:19 Room Air 08/02/22 23:36 Room Air
[2022-08-03] MEDS: DOCUSATE SODIUM/SENNA 50/8.6MG TAB PO SCH (22:33)
[2022-08-04] MEDS: POLYETHYLENE (MIRALAX) 17 GM PACK PO SCH ×5 (00:42→20:12)
[2022-08-04] MEDS: LOSARTAN POTASSIUM 25 MG TAB PO SCH (07:51)
[2022-08-04] MEDS: FERROUS SULFATE 325 MG TAB PO SCH (07:51)
[2022-08-04] MEDS: ESCITALOPRAM OXALATE 20 MG TAB PO SCH (07:51)
[2022-08-04] MEDS: GABAPENTIN 300 MG CAP PO SCH ×2 (07:52→20:10)
[2022-08-04] MEDS: MULTIVITAMIN TAB PO SCH (07:52)
[2022-08-04] MEDS: dexAMETHasone 6 MG in SYRINGE 0 ML IV SCH (07:52)
[2022-08-04] MEDS: ATORVASTATIN 40 MG TAB PO SCH (07:52)
--- NOTE | 2022-08-04 12:11 | Orthopedic Progress Note ---
Date of Service August 04, 2022 Assessment & Plan (1) Neurogenic claudication due to lumbar spinal stenosis: Plan: At this time we will encourage activity as tolerated. He may ambulate the halls tolerance. Hopefully discharge home tomorrow. Admission and Anticipated Discharge Date Admission Date: August 02, 2022 Subjective Patient's back pain is controlled leg pain improved. He is up and ambulating in the room. Physical Exam Physical Exam: Patient is in the chair at the bedside. He has good strength testing. Results & Data Vital Signs (Past 12 Hours) Vital Signs Temp Pulse Resp BP Pulse Ox O2 Del Method 08/04/22 08:00 Room Air 08/04/22 07:38 36.6 C 68 16 117/73 97 Room Air
[2022-08-04] MEDS: DOCUSATE SODIUM/SENNA 50/8.6MG TAB PO SCH (20:07)
[2022-08-05] MEDS: POLYETHYLENE (MIRALAX) 17 GM PACK PO SCH (02:55)
[2022-08-05] MEDS: LOSARTAN POTASSIUM 25 MG TAB PO SCH (08:20)
[2022-08-05] MEDS: GABAPENTIN 300 MG CAP PO SCH (08:20)
[2022-08-05] MEDS: dexAMETHasone 6 MG in SYRINGE 0 ML IV SCH (08:20)
[2022-08-05] MEDS: ESCITALOPRAM OXALATE 20 MG TAB PO SCH (08:20)
[2022-08-05] MEDS: FERROUS SULFATE 325 MG TAB PO SCH (08:21)
[2022-08-05] MEDS: MULTIVITAMIN TAB PO SCH (08:21)
--- NOTE | 2022-08-05 08:33 | Discharge Summary ---
Date of Service August 05, 2022 Admission HPI Per Admitting Provider This is a 62-year-old male presents with above-mentioned diagnosis after failed course of nonoperative care is here for surgical invention. Principal Diagnosis Lumbar spinal stenosis with neurogenic claudication Discharge Data Allergies Allergy/AdvReac Type Severity Reaction Status Date / Time lisinopril AdvReac Mild cough Verified 08/02/22 10:53 Consultations 08/03/22 07:19 Consult Hospitalist Routine Procedures Performed Operation Date: 08/02/22 12:05 Actual Procedures p L2-L4 Decompression, L2-L5 Fusion, L4-L5 Hardware Removal, Spinal Cord Monitoring(Not Applicable) - Kane James DO Ordered Studies 08/02/22 12:05 FL lumbar spine 2-3V Routine Hospital Course (1) Neurogenic claudication due to lumbar spinal stenosis: Patient 1 lumbar decompression fusion tolerated so was taken to orthopedic for postoperative. Postop day 1 he was up and ambulating Jr postop day #2 postop day #3 pain was well controlled ambulating halls excellent strength testing subsequent discharge home. Discharge orders and instructions found in chart for further review. Total Time Total Time Spent Total Time Spent (In Minutes): 20 minutes Discharge Plan Discharge Items Patient Disposition: Home - Self-Care Reason For Visit: Spinal Stenosis, Lumbar Region without Neurogenic Discharge Diagnosis: Lumbar spinal stenosis with radiculopathy Activity: As commented below Non-emergency contact: Primary Care Provider Call non-emergency contact if: you have any medication questions Follow-up/Referrals: Lita Kan CRNP [Primary Care Provider] - Diet: Regular Addtl Attending Provider Instructions: ACTIVITY RECOMMENDATIONS: SELF CARE INSTRUCTIONS AFTER THORACIC/LUMBAR FUSIONS 1. You may walk to your tolerance. It is good exercise for your legs and back. Expect some back and intermittent leg aches and pains. 2. You may perform "counter-top" level activities (make a sandwich, alton with a project, etc.). 3. No bending or lifting of more than 10 pounds or back twisting of any nature (roll like a log when turning in bed). 4. You may ride in a car for 20-30 minutes at a time. No driving until after your first visit with your doctor. 5. Frequent changes of position and restricting sitting to 30 minutes at a time will help limit the amount of back spasms and stiffness you may experience. 6. You may discontinue the use of ambulatory aids (cane, crutches, etc.) once your strength and confidence allow. 7. You may supervisor contingents the shower and let water strike your incision when you arrive home at least once daily. Do not take a tub bath, sit in a hot tub or go into a swimming pool until after your first recheck in the office. SPECIAL CARE INSTRUCTIONS: VERY IMPORTANT TO READ AND REVIEW A. Your surgical incision has been closed with a cosmetic suture under the skin that will dissolve in about 6 weeks. In 14 days, you can use a pair of clean scissors and cut the suture that is left outside of the skin at the ends of your incision. 1. The small skin tapes can be removed 7 days after surgery if they have not fallen off by that point. 2. You may keep the wound open to air as much as possible to promote healing after post-op day number 5 unless told otherwise by your doctor. 3. If you think the wound looks like it is becoming infected (redness or worsening drainage) and/or you are experiencing fever, chill or worsening back pain and muscle spasms, contact the office so that we may evaluate you as soon as possible. B. Complications are uncommon, but please contact us if you have any signs or symptoms of: 1. wound infection (fever higher than 102.5 degrees F, redness, separation of wound, drainage, or increasing pain from the incision) 2. blood clots in legs (pain, swelling, redness and warmth in legs) 3. urinary tract infection (fever higher than 102.5 degrees F, burning upon urination or increased frequency of urination) 4. nerve problems (inability to walk on your toes or heels, numbness, loss of bowel or bladder control) 5. any other symptoms that concern you C. Please call the office at if you have any concerns or questions about your operation or recovery. D. No smoking! Smoking drastically decreases the chance of a solid fusion. E. Do not take any anti-inflammatory medications (Indocin, Advil, Motrin, Aspirin, Naprosyn, etc.) as these may inhibit the chance of a solid fusion. Tylenol is okay to take for pain. MANAGING PAIN AFTER SPINAL SURGERY 1. Narcotic medication is intended for short-term use and will be provided for surgical pain. Surgical pain usually lasts for a period of 4-6 weeks. Narcotic medication includes Percocet, Vicodin, Darvocet, Tylenol #3 or Lortab. 2. Longer-term pain is more appropriately treated with non-narcotic medication such as Tylenol ES. 3. Muscle spasm is not appropriately treated with narcotics. Muscle relaxers such as Soma, Flexeril or Skelaxin can be used along with Tylenol ES. 4. Remember that we all live with some "aches and pains". This is not unusual or uncommon after an injury or as we get older. a. Back pain is expected and may include muscle spasms for 4 to 6 weeks after surgery. The pain should gradually improve. If the pain worsens for no apparent reason, please contact the office. b. Intermittent leg pain may also be experienced and should not be concerned about unless it worsens for no apparent reason. If so, please contact the office. 5. We will provide appropriate medication within the normal guidelines of their prescribed use. We will also be very cautious and aware of potential abuse and extended duration of patients' medication needs. a. Pain medications are for your comfort and to assist with sleep and rest so that the tissue can heal. They are not provided in order to return to normal activity and should not be used through the day. To do so or worsening pain at night can result from ongoing tissue damage and development of tolerance to the prescribed medicine. 6. Please allow 2-3 days to process refills. Prescriptions will not be mailed but must be picked up at the office. FOLLOW UP VISIT: Keep your scheduled follow-up appointment. Any questions, please call the office at . Pending Studies at Discharge: No Stand-Alone Forms: My [facility] Team Robot, Smoking Cessation Medications and DC Order Prescriptions: New tramadol 50 mg tablet 50 mg PO Q6H PRN (Reason: pain, moderate) Qty: 30 0RF oxycodone-acetaminophen [Percocet] 5-325 mg tablet 1 tab PO Q8H Qty: 30 0RF Continued losartan 25 mg tablet 25 mg PO QAM Qty: 90 3RF Rx Instructions: pt d/c lisinopril fenofibrate nanocrystallized 145 mg tablet 145 mg PO QAM Qty: 90 3RF Rx Instructions: place on fiel till needed atorvastatin 40 mg tablet 40 mg PO QAM Qty: 90 3RF Rx Instructions: place on file till needed escitalopram oxalate [Lexapro] 20 mg tablet 20 mg PO QAM Qty: 90 3RF Rx Instructions: d/c effexor zolpidem [Ambien] 5 mg tablet 5 mg PO ONCE PRN (Reason: insomnia) Qty: 30 1RF verapamil 100 mg capsule, [address] 100 mg PO QAM Qty: 30 11RF multivitamin Tablet 1 tab PO QAM gabapentin 300 mg Tablet 300 - 900 mg PO UD Rx Instructions: 300mg every morning, 900mg every night omeprazole 40 mg capsule,delayed release(DR/EC) 40 mg PO BID PRN (Reason: Indigestion) Patient Comments: takes at least one dose every day ferrous sulfate [iron] 325 mg (65 mg iron) Tablet 325 mg PO QAM Discharge Orders: Discharge Order (Routine); Ordered 08/05/22 Ordered By: aKne James Admission Data Admit Date/Time: 08/02/22 13:48 Attending Provider: Kane James Admit Provider: Kane James Primary Care Provider: Lita Kan. Other Providers: Zev Corcoran ; Raudel Beckford
[2022-08-05] MEDS: ATORVASTATIN 40 MG TAB PO SCH (08:44)
--- NOTE | 2022-10-05 12:52 | Coding Query ---
To promote full compliance with coding requirements relating to patient care, provider participation is requested in all cases of wet pour supervisor uncertainty. Please assist us with the question(s) below: Coding Question(s): The diagnosis(es) below was documented in the August 03, 2022 progress note. Please indicate if it is still a possible diagnosis or ruled out. Physician's Response(s): Acute blood loss anemia, postoperative ( ) Diagnosed and POA (xxx ) Diagnosed and not POA ( ) Ruled out ( ) Other (please specify) MTDD
== END 2022-08-05 12:21 | disposition home or self-care (01) | DRG 454 ==
LOC: ASU 10:32 → 3E 13:48